=== PATIENT | female | born 1985 | race Caucasian/White ===

== ENCOUNTER → 2020-12-11 | Outpatient (CLI) | payer MEDICARE, MEDICAID ==
[~2020-12-11] MED LIST: ALBU17AE3 IH; ALPR1TAB2 PO; CYCL10TA9 PO; DICY10CA26 PO; HYDR-1229 PO; IBUP-1773 PO; LORA0.5T PO; MELO-195 PO; MNTL10T PO; NORE-4 PO; OMEP20TA2 PO; ONDN4T PO; POLY17PO23 PO
[2020-12-11 17:15] LABS: ALBUMIN 4.2 GM/DL (3.2-4.5); CHLORIDE 104 MMOL/L (98-107); POTASSIUM 3.5 MMOL/L (3.6-5.0); SODIUM 137 MMOL/L (135-145)
[2020-12-11 17:16] LABS: CALCIUM 8.9 MG/DL (8.5-10.1)
[2020-12-11 17:17] LABS: TRIGLYCERIDES 56 MG/DL (<150); VLDL CHOLESTEROL 11 MG/DL (5-40)
[2020-12-11 17:18] LABS: GLUCOSE 85 MG/DL (70-105); TOTAL PROTEIN 7.2 GM/DL (6.4-8.2)
[2020-12-11 17:19] LABS: CARBON DIOXIDE 19 MMOL/L (21-32)
[2020-12-11 17:20] LABS: BILIRUBIN,TOTAL 0.5 MG/DL (0.1-1.0)
[2020-12-11 17:21] LABS: ALKALINE PHOSPHATASE 91 U/L (40-136); CREATININE SERUM 0.63 MG/DL (0.60-1.30); GFR ESTIMATED > 60
[2020-12-11 17:22] LABS: CHOLESTEROL 146 MG/DL (< 200)
[2020-12-11 17:23] LABS: BUN/CREATININE RATIO 11
[2020-12-11 17:24] LABS: ALANINE AMINOTRANSFERASE 33 U/L (0-55); HDL CHOLESTEROL 53 MG/DL (40-60)
== END ==
LOC: CARD 15:00
PROVIDERS: ATTEND Internal Medicine Cardiovascular Disease
DX: I10 Essential (primary) hypertension (principal); I25.10 Atherosclerotic heart disease of native coronary artery without angina pectoris; E78.2 Mixed hyperlipidemia
CPT/HCPCS: 36415; 80053; 80061; 93306

== ENCOUNTER → 2021-03-03 | Outpatient (CLI) | payer MEDICARE, MEDICAID ==
[2021-03-03 14:31] VITALS: BP 114/81
--- NOTE | 2021-03-03 15:57 | Cardiology Stress Test Report ---
Stress Test Report Date of Procedure/Referring: Date of Procedure: Mar 03, 2021 PCP Leonora Dash Admitting Physician Katie Dimas DO Indications: CP Baseline Heart Rate: 71 Baseline Blood Pressure: Blood Pressure Systolic: 114 Blood Pressure Diastolic: 81 Baseline EKG: Baseline EKG: NSR Summary/Conclusion: Summary: In summary, the patient started exercising with a baseline heart rate, blood pressure and EKG mentioned above Patient was able to exercise for a total of 7 minutes on Calvin protocol, METs 8.5 Maximum heart rate 179 Maximum blood pressure 166/91 Stress EKG, Minimal nondiagnostic changes Recovery EKG , Return to baseline Conclusion: 1. Good exercise tolerance for a total of 7 minutes on Calvin protocol, 8.5 METs, achieving 96 percent of maximum expected heart rate 2. Minimal nondiagnostic EKG changes with exercise returned to baseline during recovery 3. No arrhythmia was noted TYESHA CACERES MD Mar 03, 2021 15:57
== END ==
LOC: CARD 14:00
PROVIDERS: ATTEND Physician Assistant
DX: R07.9 Chest pain, unspecified (principal)
CPT/HCPCS: 93017

== ENCOUNTER → 2021-06-07 | Outpatient (CLI) | payer MEDICARE, MEDICAID | LOC: CARD 13:25 | PROVIDERS: ATTEND Internal Medicine Cardiovascular Disease | DX: I49.9 Cardiac arrhythmia, unspecified (principal) | CPT/HCPCS: 93225; 93226 ==

== ENCOUNTER → 2021-11-30 | Outpatient (CLI) | payer MEDICARE, MEDICAID ==
[2021-11-30 13:16] LABS: POTASSIUM 3.4 MMOL/L (3.6-5.0)
[2021-11-30 13:17] LABS: ALBUMIN 4.3 GM/DL (3.2-4.5)
[2021-11-30 13:18] LABS: CALCIUM 9.3 MG/DL (8.5-10.1)
[2021-11-30 13:19] LABS: TOTAL PROTEIN 7.2 GM/DL (6.4-8.2)
[2021-11-30 13:21] LABS: BILIRUBIN,TOTAL 0.4 MG/DL (0.1-1.0)
[2021-11-30 13:23] LABS: CREATININE SERUM 0.65 MG/DL (0.60-1.30)
== END ==
LOC: LAB 12:34
PROVIDERS: ATTEND Internal Medicine Cardiovascular Disease
DX: E78.2 Mixed hyperlipidemia (principal)
CPT/HCPCS: 36415; 80053; 80061